=== PATIENT | female | born 1950 | race Caucasian/White ===

== ENCOUNTER 2021-11-30 17:55 | Emergency (ER) | payer MEDICARE, OTHER ==
[2021-11-30 18:08] VITALS: BP 142/75; PULSE 88
--- NOTE | 2021-11-30 18:23 | EDM.PDOC ---
ED HPI GENERAL MEDICAL PROBLEM - General Chief Complaint: Wound Recheck Stated Complaint: DISCHARGE FROM [facility] IN HER BACK Time Seen by Provider: 11/30/21 18:06 Source of Information: Reports: Patient, RN Notes Reviewed History Limitations: Reports: No Limitations - History of Present Illness INITIAL COMMENTS - FREE TEXT/NARRATIVE: Patient is a 71-year-old female who presents to the ER for a wound recheck. States she had spinal fusion performed by Dr. Balderas on November 17, 2021, and was discharged to [facility] today, when the nurse checked her wound, there was some drainage coming from the wound so they brought her here for evaluation. Patient's not complaining any fever, redness or tenderness that is increased at the wound site. They were unsure about the amount of drainage she was having, and if this was normal or not. - Related Data Allergies Allergy/AdvReac Type Severity Reaction Status Date / Time nickel Allergy Facial Uncoded 12/19/14 11:15 Swelling Home Meds: Home Meds Cyanocobalamin/Folic AC/Vit B6 [B Complex-Folic Acid] 1 each PO DAILY 03/26/14 [History] Escitalopram [Lexapro] 20 mg PO DAILY 03/26/14 [History] Multivitamin [Multivitamins] 1 each PO DAILY 03/26/14 [History] hydroCHLOROthiazide [Hydrochlorothiazide] 12.5 mg PO DAILY 03/26/14 [History] Omeprazole [Prilosec] 20 mg PO DAILY #14 capsule. 12/19/14 [Rx] Vit D3 & K/Berberine HCl/Hops [Ostera] 5,000 mg PO DAILY 12/19/14 [History] Iron 18 mg PO DAILY 05/17/16 [History] Losartan Potassium 50 mg PO DAILY 05/17/16 [History] Metoprolol Succinate 50 mg PO DAILY 05/17/16 [History] ED ROS GENERAL - Review of Systems Review Of Systems: Comprehensive ROS is negative, except as noted in HPI. ED EXAM, SKIN/RASH Exam: See Below Exam Limited By: No Limitations General Appearance: Alert, WD/WN, No Apparent Distress Respiratory/Chest: No Respiratory Distress, Lungs Clear, Normal Breath Sounds, No Accessory Muscle Use, Chest Non-Tender Cardiovascular: Normal Peripheral Pulses, Regular Rate, Rhythm, No Edema Extremities: Normal Inspection, Normal Capillary Refill Neurological: Alert, Oriented, Normal Cognition, No Motor/Sensory Deficits Psychiatric: Normal Affect, Normal Mood Skin: Warm, Dry, Intact, Normal Color, No Rash, Wound/Incision (well healing surgical wound; serous drainage from the middle of the wound. no fluctuance or induration lateral to the wound) Course - Vital Signs Last Recorded V/S: Last Vital Signs Temp 97 F 11/30/21 18:05 Pulse 88 11/30/21 18:05 Resp 16 11/30/21 18:05 BP 142/75 H 11/30/21 18:05 Pulse Ox 99 11/30/21 18:05 - Re-Assessments/Exams Free Text/Narrative Re-Assessment/Exam: 11/30/21 18:19 Patient presents to the ER for a wound recheck, patient was evaluated by myself and Dr. Villarreal due to the nature of the wound. This does look like just serous drainage, patient will be discharged home with conservative recommendations and strict instructions to have the bandage changed as often as possible as needed Departure - Departure Time of Disposition: 18:20 Disposition: Home, Self-Care 01 Condition: Good Clinical Impression: Encounter for wound re-check - Discharge Information *PRESCRIPTION DRUG MONITORING PROGRAM REVIEWED*: No *COPY OF PRESCRIPTION DRUG MONITORING REPORT IN PATIENT TALITA: No Instructions: Wound Check Referrals: Kassie Martinez MD [Primary Care Provider] - Additional Instructions: You were evaluated in the ER today for a wound recheck. Your wound was assessed by myself and Dr. Villarreal, and no infection was found. The wound itself is draining, but this is a serous fluid and typical for healing wounds. You will need to have this wound checked often throughout the day, if the bandage is wet, it will need to be changed. ABD pads that can be affixed to the skin would be appropriate. Again this might need to happen several times a day. If the bandage is wet, it will need to be changed. Watch out for any signs of infection, redness, purulent drainage, or any sort of fevers that would develop, as this would be cause for concern to return to the ER for further management. Do not hesitate to return to the ER at any time if symptoms change or worsen. Sepsis Event Note (ED) - Evaluation Sepsis Screening Result: No Definite Risk - Focused Exam Vital Signs: Vital Signs Temp Pulse Resp BP Pulse Ox 11/30/21 18:05 97 F 88 16 142/75 H 99
== END 2021-11-30 18:35 | disposition home or self-care (01) ==
LOC: JD.ED 17:55
DX: Z48.01 Encounter for change or removal of surgical wound dressing (principal); Z91.048 Other nonmedicinal substance allergy status; Z79.899 Other long term (current) drug therapy
CPT/HCPCS: 99282